=== PATIENT | male | born 1985 | race Caucasian/White ===

== ENCOUNTER 2024-05-09 04:51 | Emergency (ER) | payer OTHER, SELFPAY ==
[2024-05-09 04:54] VITALS: BP 138/88
[2024-05-09 05:12] VITALS: BMI 38.9
[2024-05-09 05:37] LABS: COVID-19 Antigen Negative (Negative)
[2024-05-09 06:13] VITALS: BP 120/76
--- NOTE | 2024-05-09 07:20 | ED.GENMED ---
History of Present Illness
General
Chief Complaint: Throat Problem
Source: patient
Exam Limitations: none
Time Seen by Provider: 05/09/24 07:08
Nursing documentation reviewed up to this point in time: agreed with
History of Present Illness
History of Present Illness:
38-year-old male with a history of anxiety presents for right sided throat pain that woke him up last night. Patient says he felt it mildly but it got worse in the middle of the night. He feels painful swallowing and feels like it swollen more on
the right than the left. He has no fever, chills, cough. Patient does have some swollen lymph nodes that are sore as well. He recently was on antibiotics about 2 or 3 weeks ago for bronchitis. He thinks it was Zithromax and then also a steroid
taper. Patient otherwise does not take any chronic steroids. He did not try anything for the pain
Past History
Social History
Tobacco: Non-smoker
Alcohol: None
Drug: None
Personal:
Living: with family
Review of Systems
Review of Systems
Allergies reviewed?: Yes
All Other Systems: Not applicable
Phy Exam
Physical Exam
Physical Exam:
GENERAL: Alert , in no apparent distress, speaking in full sentences, tolerating secretions, not drooling,
EYE: pupils equal and reactive
NECK: Supple, tender bilateral lymph node swelling anterior cervical chain
ENT: b/l TM s clear, right sided tonsillar erythema, no exudate, very very minimal asymmetry with the right being slightly larger than the left, there is no obvious fluctuance, there is no uvular deviation
CARDIAC: Regular rate and rhythm, no edema
LUNGS: Clear breath sounds bilaterally, no acute respiratory distress, no wheezes/rales/rhonchi, occ cough
ABDOMEN: Soft, without focal tenderness, no r/g, no cvat, normal bowel sounds
NEUROLOGICAL: Alert and oriented, no focal neuro deficits
SKIN: Warm and dry, skin intact.
MUSCULOSKELETAL: No edema, well perfused.
PSYCH: Normal and appropriate interaction.
Course
Orders/Labs/Results
Orders:
Orders
05/09/24 05:12
COVID-19 Antigen Urgent
Source: Nasal Swab
INF RAPID [Influenza A+B Rapid Molecular] Urgent
SAMEER Source: Nasal Swab
Specimen Description:
Rapid Strep Group A Urgent
SAMEER Source: Throat/Pharynx
Specimen Description:
Date Specimen was Collected: 05/09/24
Time Specimen was Collected: 05:09
05/09/24 07:23
Amoxicillin 875 mg/Clav 125 mg [Augmentin 875 mg/125 mg] 1 tablet PO NOW STA
Ibuprofen [Motrin] 800 mg PO NOW STA
Prednisone [Deltasone] 50 mg PO NOW STA
Vital Signs
Initial and Last Documented VS:
Initial Vital Signs
Temp Pulse Resp BP Pulse Ox
36.4 C 65 20 138/88 100
05/09/24 04:54 05/09/24 04:54 05/09/24 04:54 05/09/24 04:54 05/09/24 04:54
Last Documented Vital Signs
Temp Pulse Resp BP Pulse Ox
36.4 C 56 18 120/76 96
05/09/24 04:54 05/09/24 06:13 05/09/24 06:13 05/09/24 06:13 05/09/24 06:13
MDM/Problems Addressed
Differential Diagnosis Includes:
CHIEF METEOROLOGIST, tonsillitis, herpes zoster, strep, COVID
MDM/Problems Addressed:
38-year-old male with history of anxiety presents for right sided tonsillar pain and fullness overnight. He had no fever, no cough. He has some swollen lymph nodes. On exam his right peritonsillar region is very minimally swollen, there is no
obvious fluctuance, the tonsillar pillar is not much larger than the left side, he has erythema that is unilaterally asymmetric, on the right side only. He has no exudate. He is speaking in full sentences with normal phonation, swallowing normal,
no sublingual swelling, able to open his mouth without trismus, he does have some tender swollen lymphadenopathy bilaterally but more right tonsillar region. It is not erythematous on the outside of his skin.
I did have a noticed that when he blinks it seems like his left lid lags a little bit behind his right. He says that this is normal for him when he is tired. He has no facial asymmetry and normal sensation face and normal muscle movement. The
consideration would be for a Bowie's palsy developing because of a zoster in that region. There is no zoster like rash. I am going to cover the patient with Augmentin and a Medrol Dosepak. At this time needle aspiration would not be helpful, and
there is no significant fluctuance. And given the fact that he is so well-appearing with the ability to tolerate secretions I do not feel like there is a retropharyngeal process, he is very comfortable with moving his neck.
Return precautions given
*Critical Care Note
Total Time (30-74mins, 75-104mins- exclusive of procedures): Not Applicable
ED Attending Note
-
Portions of this chart may have been created with voice recognition software.� Occasional wrong word or��sound alike� substitutions may have occurred due to the inherent limitations of voice recognition software.
Discharge Plan
Departure
Patient Disposition: Home (Routine Discharge)
Date of Disposition: 05/09/24
Time of Disposition: 07:34
Patient with high blood pressure during this ER visit?: No
Condition: Fair
Covid-19: Not Applicable
Discharge Problem:
Peritonsillar abscess
Instructions: Peritonsillar Abscess, Adult (DC)
Prescriptions:
New
amoxicillin-pot clavulanate 875-125 mg tablet
1 tab PO BID Qty: 20 0RF
methylprednisolone 4 mg tablets,dose pack
See Rx Instructions .ROUTE .COMPLEX Qty: 21 0RF
Rx Instructions:
for 6 days
No Action
buspirone [BuSpar] 15 mg Tablet
15 mg PO TID
escitalopram oxalate [Lexapro] 10 mg Tablet
10 mg PO DAILY
Referrals:
Champ Arellano DO [Family Provider] -
Binu Corado MD [Active] - Follow up in 5-7 days (ent)
Activity Restrictions/Additional Instructions:
You have a very slightly asymmetrical right tonsil that is probably the start of a peritonsillar abscess. Use Augmentin twice a day for 10 days. You can use a probiotic while on this medication. Also start the Medrol Dosepak starting tomorrow
morning. You were given a dose of steroids today. Take Tylenol and ibuprofen for pain. If you are still having issues of feeling fullness in that side but not progressively worse he can follow-up with ear nose and throat. If you feel worse like
you are having trouble talking, swallowing, speaking, tolerating her secretions or have worsening of muffled voice, high fever, neck swelling please return to the emergency department
Interventions
Interventions:
*Risk Screen - Suicide Last Done: 05/09/24 04:54
*General Assessment Last Done: 05/09/24 05:11
*Neglect/Abuse Screening Last Done: 05/09/24 04:54
ED- Fall Risk Assessment Last Done: 05/09/24 05:33
*ED COVID-19 Vaccine History Last Done: 05/09/24 05:11
*Nursing Disposition Last Done: 05/09/24 08:01
ED-EENT Assessment Last Done: 05/09/24 05:33
ED- Pulmonary Assessment Last Done: 05/09/24 05:33
Discharge Date and Time
Print Language: OMANI
[2024-05-09] MEDS: DELTASONE 50 MG PO (07:32)
[2024-05-09] MEDS: MOTRIN 800 MG PO (07:32)
[2024-05-09] MEDS: AUGMENTIN 875 MG/125 MG 1 TABLET PO (07:32)
== END 2024-05-09 08:01 | disposition home or self-care (01) ==
LOC: EMR 04:51
PROVIDERS: Emergency Medicine; EMERGENCY PHYSICIAN Emergency Medicine; FAMILY PHYSICIAN Family Medicine
DX: J36 Peritonsillar abscess (principal); F41.9 Anxiety disorder, unspecified
CPT/HCPCS: 99283; 87070; 87502; 87811; 87880